=== PATIENT | male | born 1930 | race Caucasian/White ===

== ENCOUNTER 2018-06-30 03:16 | Emergency (ER) | payer MEDICARE, OTHER ==
--- NOTE | 2018-06-30 04:07 | Diagnostic Imaging Report ---
KOURTNEY JERRY ([employer]) - [facility] [address] [facility].[address] [address] Report Submission Date: Jun 30, 2018 4:03:57 AM CDT Patient Study Name: SUKHDEEP DE LEON Date: Jun 30, 2018 3:26:20 AM CDT Modality Type: DX Gender: M Description: LOWER EXTREMITY : [birth year] Institution: [facility] Physician: KOURTNEY JERRY ([employer]) - ER Three views of the right foot Clinical history: Injury. Pain and swelling Findings: Examination of the right foot in plantar, lateral and oblique views demonstrates an intra-articular fracture of the base of the 5th proximal phalanx with displacement of fracture fragment by 1-2 mm. There are degenerative changes with narrowing of the interphalangeal joints. Calcaneal spurs are seen on the lateral view. There is prominent soft tissue swelling in the dorsum of the foot. Impression: 1. Intra-articular fracture base of the 5th proximal phalanx. 2. Degenerative changes. 3. Soft tissue swelling. Electronically signed on Jun 30, 2018 4:03:57 AM CDT by: Abraham HORTON
[2018-06-30] MEDS ORDERED: BUPIVACAINE HCL/PF 5 MG/ML 10ML VIAL IJ ONE (04:27)
[2018-06-30] MEDS ORDERED: cefTRIAXone SODIUM 1 GM in 0.9 % SODIUM CHLORIDE 50 ML IV ONE (04:31)
[2018-06-30] MEDS ORDERED: cefTRIAXone SODIUM 1 GM VIAL ONE (04:32)
[2018-06-30] MEDS ORDERED: DIPH,PERTUSS(ACELL),TET VAC/PF 0.5 ML DISP.SYRIN IM ONE (04:44)
--- NOTE | 2018-06-30 05:02 | ED Physician Documentation ---
Foot Injury - HISTORIAN Historian: patient, spouse - HPI Stated Complaint: stubbed Rt 5th digit Chief Complaint: Foot Injury Onset: minutes Where: home Severity: moderate Context: laceration Further Comments: yes (88 year old male patient brought in by his for evaluation of right 5th toe laceration. Patient stubbed toe at home. unsure of injury, patient unable to recall.) - ROS CONST: no problems CVS/RESP: none MS/SKIN/LYMPH: none - PAST HX Past History: other (Alzheimers, dementia, HTN, CHF) Allergies/Adverse Reactions: Allergies Allergy/AdvReac Type Severity Reaction Status Date / Time No Known Allergies Allergy Verified 06/30/18 03:38 Home Medications: Ambulatory Orders Medication Instructions Recorded Atenolol [Tenormin] 1 tab PO DAILY 02/14/15 Donepezil HCl [Donepezil HCl] 1 tab PO DAILY 02/14/15 Trazodone HCl [Trazodone HCl] 2 tab PO HS 02/14/15 - SOCIAL HX Smoking History: non-smoker - FAMILY HX Family History: denies: none - VITAL SIGNS Vital Signs: Vital Signs Temp Pulse Resp BP Pulse Ox 98.3 F 64 18 162/75 94 06/30/18 03:21 06/30/18 03:21 06/30/18 03:21 06/30/18 03:21 06/30/18 03:21 - REVIEWED ASSESSMENTS Nursing Assessment Reviewed: Yes Vitals Reviewed: Yes Progress - Progress Progress: Procedure Note laceration: Length: 3.5 cm laceration Location: Along base of right 5th toe Wound cleaned with chlorhexidine and NS; anesthetized with 4cc bupivicaine .5% - patient tolerated well. Irrigated with 1000ml NS; no foreign body noted Closed using sterile technique, interrupted sutures 4.0 ethilon x 7 stitches Wound edges well approximated. Tetanus: Given in Er. Patient tolerated procedure well; reviewed discharge instructions - verbalized understanding. reports patient has an appointment with examination grader next . ED Results Lab/Radiology - Radiology Radiology Impressions: Three views of the right foot Clinical history: Injury. Pain and swelling Findings: Examination of the right foot in plantar, lateral and oblique views demonstrates an intra-articular fracture of the base of the 5th proximal phalanx with displacement of fracture fragment by 1-2 mm. There are degenerative changes with narrowing of the interphalangeal joints. Calcaneal spurs are seen on the lateral view. There is prominent soft tissue swelling in the dorsum of the foot. Impression: 1. Intra-articular fracture base of the 5th proximal phalanx. 2. Degenerative changes. 3. Soft tissue swelling. Electronically signed on Jun 30, 2018 4:03:57 AM CDT by: Abraham Zapata - Orders Orders: ED Orders Category Date Time Status Cleanse with NS and Chlorhexid 1T Care 06/30/18 04:27 Active Further Nursing Orders 1T Care 06/30/18 04:30 Ordered XRAY FOOT [FOOT 3 VIEWS OR MORE] [RAD] Stat Exams 06/30/18 Completed Bupivacaine HCl/Pf [Marcaine 0.5%] Med 06/30/18 04:27 Discontinued 5 mg IJ NOW ONE Diph,Pertuss(Acell),Tet Vac/Pf [Adacel] Med 06/30/18 04:44 Discontinued 0.5 ml IM .STK-MED ONE cefTRIAXone SODIUM [Rocephin] Med 06/30/18 04:32 Discontinued 1 gm .ROUTE .STK-MED ONE cefTRIAXone SODIUM [Rocephin] 1 gm Med 06/30/18 04:31 Ordered 0.9 % Sodium Chloride [Sodium Chloride] 50 ml IV NOW Foot Injury Physical Exam - Physical Exam General Appearance: no acute distress, alert Foot: right foot: abrasions/lacerations (laceration along base of 5th toe volar aspect 3.5 cm), limited range of motion, soft tissue tenderness, swelling, left foot: normal inspection, normal range of motion, no evidence of injury, bilateral foot: non-tender Ankle: bilateral: non-tender, normal inspection, normal range of motion, no evidence of injury Neuro: decreased fine touch Vascular: no vascular compromise Tendons: tendon function nml Leg/Knee/Thigh: uninjured above ankle Skin: intact, warm, dry Resp/CVS: no resp. distress, reg. rate & rhythm Discharge Clincal Impression: Laceration of fifth toe, right, complicated Qualifiers: Encounter type: initial encounter Qualified Code(s): S91.114A - Laceration without foreign body of right lesser toe(s) without damage to nail, initial encounter Toe fracture, right Qualifiers: Encounter type: initial encounter Toe: lesser toe Fracture type: open Phalanx: proximal Fracture alignment: nondisplaced Qualified Code(s): S92.514B - Nondisplaced fracture of proximal phalanx of right lesser toe(s), initial encounter for open fracture Referrals: Ponce Vicente MD [Primary Care Provider] - 2 Days Additional Instructions: Keep the wound clean and dry until it has healed. You can wash or shower after 24 hours. Do not soak the wound in water and make sure it is dry afterwards (gently pat the area dry with a clean towel). Do not get into a swimming pool, hot tub, [place] or river until your stitches are removed. To remove your dressing, gently pull it off. If needed, you can dampen it with water then gently pull it off. Clean the laceration twice a day with hibiclens and rinse with water clean away any scabbed area Apply thin coat of antibiotic ointment after cleaning the wound. Cover with non-adherent bandage if able. If you have pain, take simple pain relief medication such as Tylenol or ibuprofen. If bandages or dressings get wet, they will need to be changed. Call your doctor for any signs of symptom of infection redness, drainage, pain. Have your stitches removed at your doctors office in 10 days. make up operator your antibiotic and start it in the morning. Condition: Stable Disposition: 01 HOME, SELF-CARE Decision to Admit: NO Decision Time: 05:11
[2018-06-30 06:23] VITALS: BP 158/74
== END 2018-06-30 05:40 | disposition home or self-care (01) ==
LOC: ED 03:16
DX: S91.114A Laceration without foreign body of right lesser toe(s) without damage to nail, initial encounter (principal); S92.514B Nondisplaced fracture of proximal phalanx of right lesser toe(s), initial encounter for open fracture; X58.XXXA Exposure to other specified factors, initial encounter; Y92.9 Unspecified place or not applicable; Y93.9 Activity, unspecified; Y99.9 Unspecified external cause status
CPT/HCPCS: 12002; 73630; 90471; 90715; 96365; 96372; J0696; J3490; J7030; S1016

== ENCOUNTER 2018-08-05 06:57 | Emergency (ER) | payer OTHER ==
[2018-08-05 07:28] LABS: MEAN CORPUSCULAR HEMOGLOBIN 32.9 pg (28.0-34.0); MEAN CORPUSCULAR VOLUME 107.7 fl (80.0-100.0)
[2018-08-05 07:36] LABS: eGFR (Non-African) 23
--- NOTE | 2018-08-05 07:40 | Diagnostic Imaging Report ---
PHILIPPE CURTIS [facility] [address] [facility] [address] [place], [place]. [address] Report Submission Date: Aug 05, 2018 7:34:04 AM CDT Patient Study Name: SUKHDEEP DE LEON Date: Aug 05, 2018 7:13:35 AM CDT Modality Type: DX Gender: M Description: CHEST : 06[birth year] Institution: [facility] Physician: PHILIPPE CURTIS Report Submission Date: Aug 05, 2018 7:34:04 AM CDT Patient Study Name: SUKHDEEP DE LEON Date: Aug 05, 2018 7:13:35 AM CDT Modality Type: DX Gender: M Description: CHEST : [birth year] Institution: [facility] Physician: PHILIPPE CURTIS Chest, AP portable History: Cough of, hypoxia Findings: Infiltrates consistent with congestion or edema noted in both lungs, right greater than left. There is no pneumothorax large effusion. The heart is enlarged. Impression: Cardiomegaly. Pulmonary vascular congestion or edema. Electronically signed on Aug 05, 2018 7:34:04 AM CDT by: Roberth HORTON
--- NOTE | 2018-08-05 07:44 | ED Physician Documentation ---
General Adult - HISTORIAN Historian: patient - HPI Stated Complaint: SOA, AMS Chief Complaint: Dyspnea Onset: hours (1) Timing: better Severity: mild Further Comments: yes (Per Ambulance service usp called with oxygen sat in 70's and they did place him on a simple mask at 3L not helping sat at that time. He is now able to respond to his name. He did state his daughter's hand was cold. He was hospitalized 3 weeks ago for "issues" per daughter. He is not complianing of pain.) Last known Well Code/Unknown Code: Unknown - ROS CONST: weakness (per daughter) - PAST HX Past History: hypertension, other (alz,anemia, GERD, BPH ) Immunizations: referred to PCP Allergies/Adverse Reactions: Allergies Allergy/AdvReac Type Severity Reaction Status Date / Time No Known Allergies Allergy Verified 06/30/18 03:38 Home Medications: Ambulatory Orders Medication Instructions Recorded Atenolol [Tenormin] 1 tab PO DAILY 02/14/15 Donepezil HCl 1 tab PO DAILY 02/14/15 Trazodone HCl 2 tab PO HS 02/14/15 Cephalexin [Keflex] 500 mg PO QID #40 capsule 06/30/18 - SOCIAL HX Smoking History: non-smoker Alcohol Use: none Drug Use: none - FAMILY HX Family History: No - VITAL SIGNS Vital Signs: Vital Signs Temp Pulse Resp BP Pulse Ox 97.7 F 110 H 18 119/74 97 08/05/18 07:31 08/05/18 07:31 08/05/18 07:31 08/05/18 07:31 08/05/18 07:31 - REVIEWED ASSESSMENTS Nursing Assessment Reviewed: Yes Vitals Reviewed: Yes Progress - Progress Progress: 0805: DR Antonio ARCHIBALD accepting via ER DG ED Results Lab/Radiology - Lab Results Lab Results: Lab Results 08/05/18 08/05/18 08/05/18 Unknown Unknown Unknown WBC 7.30 K/ul K/ul (4.00-12.00) RBC 2.48 M/ul L M/ul (3.90-5.20) Hgb 8.2 g/dL L g/dL (12.0-18.0) Hct 26.7 % L % (37.0-53.0) MCV 107.7 fl H fl (80.0-100.0) MCH 32.9 pg pg (28.0-34.0) MCHC 30.6 g/dL g/dL (30.0-36.0) RDW 14.4 % H % (11.3-14.3) Plt Count 174 K/mm3 K/mm3 (130-400) PT 12.0 Seconds H Seconds (9.4-11.6) INR 1.14 (0.9-1.2) Sodium 141 mmol/L mmol/L (136-145) Potassium 5.9 mmol/L H mmol/L (3.5-5.1) Chloride 105 mmol/L mmol/L (98-107) Carbon Dioxide 17 mmol/L L mmol/L (22-30) BUN 36 mg/dL H mg/dL (9-20) Creatinine 2.80 mg/dL H mg/dL (0.66-1.25) Est GFR ( Amer) 28 L (60 - ) Est GFR (Non-Af Amer) 23 L (60 - ) Glucose 143 mg/dL H mg/dL (74-106) Calcium 8.7 mg/dL mg/dL (8.4-10.2) Total Bilirubin 0.4 mg/dL mg/dL (0.2-1.3) AST 26 U/L U/L (15-46) ALT 26 U/L U/L (13-69) Alkaline Phosphatase 75 U/L U/L (38-126) Total Protein 6.8 g/dL g/dL (6.3-8.2) Albumin 3.5 g/dL g/dL (3.5-5.0) - Radiology Radiology Impressions: Chest, AP portable History: Cough of, hypoxia Findings: Infiltrates consistent with congestion or edema noted in both lungs, right greater than left. There is no pneumothorax large effusion. The heart is enlarged. Impression: Cardiomegaly. Pulmonary vascular congestion or edema. Electronically signed on Aug 05, 2018 7:34:04 AM CDT by: Roberth Arndt - Orders Orders: ED Orders Category Date Time Status Assess pulse oximetry Q1H Care 08/05/18 07:10 Active Continuous EKG monitoring Q1H Care 08/05/18 07:10 Active CHEST 1VIEW [RAD] Stat Exams 08/05/18 Completed BLOOD CULTURE Stat Lab 08/05/18 Received BNP [NT-proBNP] Stat Lab 08/05/18 Received CBC/PLATELET/DIFF Routine Lab 08/05/18 Completed CMP Routine Lab 08/05/18 Completed PT-INR Routine Lab 08/05/18 Completed TROPONIN I (cTnI) Stat Lab 08/05/18 Received URINALYSIS Routine Lab 08/05/18 Ordered Oxygen Daily Oxygen 08/05/18 07:15 Ordered EKG WITH COMPARISON Stat Ther 08/05/18 Ordered General Adult Physical Exam - PHYSICAL EXAM GENERAL APPEARANCE: no distress EENT: eye inspection normal, ENT inspection normal, no signs of dehydration NECK: normal inspection RESPIRATORY: no resp distress, chest non-tender, wheezes (exp upper lungs) CVS: reg rate & rhythm, heart sounds normal, equal pulses ABDOMEN: soft, normal bowel sounds, no distension, non-tender BACK: normal inspection SKIN: other (brusies noted on bilateral feet (toes) Hx of fracture ) EXTREMITIES: non-tender, edema (2+) NEURO: other (he does awaken to name. Some speech is understandable ) Discharge Clincal Impression: CHF (congestive heart failure) Qualifiers: Heart failure type: other Qualified Code(s): I50.9 - Heart failure, unspecified Referrals: Harley Maier MD [Primary Care Provider] - 2 Days Additional Instructions: 0805: DR Alvarez accepting [place] DG Condition: Fair Disposition: 02 XFER SHT-TRM HOSP Decision to Admit: NO Date of Decison to Admit: 08/05/18 Decision Time: 08:05
[2018-08-05 07:57] LABS: ANISOCYTOSIS 1+ (NEGATIVE); SEGMENTED NEUTROPHILS % 91 % (39-79)
[2018-08-05] MEDS ORDERED: FUROSEMIDE 40 MG/4 ML VIAL IVP ONE (08:05)
[2018-08-05 08:40] VITALS: BP 105/68
== END 2018-08-05 08:37 | disposition short-term general hospital (02) ==
LOC: ED 06:57
DX: I50.9 Heart failure, unspecified (principal)
CPT/HCPCS: 71045; 80053; 83880; 84484; 85025; 85610; 87040; 93005; J1940; 96374